=== PATIENT | female | born 2000 | race Caucasian/White ===

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

== ENCOUNTER 2022-01-19 15:16 | Inpatient (IN) | payer MEDICAID ==
[2022-01-19] MEDS ORDERED: Lidocaine 1% 30 ML SDV INJECT PRN (15:36)
[2022-01-19] MEDS ORDERED: Acetaminophen 325 MG Tab PO PRN (15:36)
[2022-01-19] MEDS ORDERED: Sodium Chloride 0.9% 10 ML Syringe FLUSH PRN (15:36)
[2022-01-19] MEDS ORDERED: Nalbuphine 10 MG/1 ML Vial IVPUSH PRN (15:36)
[2022-01-19] MEDS ORDERED: Tranexamic Acid 1,000 MG in Sodium Chloride 0.9% 100 ML IV PRN (15:36)
[2022-01-19] MEDS ORDERED: Misoprostol 400 MCG (4 X 100 MCG TAB) RECTAL PRN (15:36)
[2022-01-19] MEDS ORDERED: Ondansetron 4 MG/2 ML SDV IVPUSH PRN (15:36)
[2022-01-19] MEDS ORDERED: Methylergonovine 0.2 MG/1 ML Amp IM PRN (15:36)
[2022-01-19] MEDS ORDERED: Lactated Ringers 1,000 ML IV ONE (15:36)
[2022-01-19] MEDS ORDERED: Carboprost Tromethamine 250 MCG/1 ML Amp IM PRN (15:36)
[2022-01-19] MEDS ORDERED: Oxytocin/Normal Saline 30 UNIT/500 ML BAG IV SCH (16:00)
[2022-01-19] MEDS: Lactated Ringers 1,000 ML IV SCH (17:30)
[2022-01-19 17:50] LABS: ESTIMATED GFR > 60
[2022-01-19] MEDS: Oxytocin/Normal Saline 30 UNIT/500 ML BAG IV SCH (18:30)
[2022-01-20] MEDS: Misoprostol 25 MCG (1/4 of 100 MCG) Tab VAG PRN ×2 (01:12→05:42)
[2022-01-20] MEDS ORDERED: Misoprostol 50 MCG (1/2 of 100 MCG) Tab VAG PRN (09:54)
[2022-01-20] MEDS: Lactated Ringers 1,000 ML IV SCH ×3 (13:27→21:56)
[2022-01-20] MEDS: Nalbuphine 10 MG/1 ML Vial IM PRN ×2 (15:45→18:44)
[2022-01-20] MEDS ORDERED: fentaNYL 100 MCG/2 ML SDV ITHECAL ONE (21:00)
[2022-01-20] MEDS ORDERED: EPINEPHrine 1 MG/ML SDV ONE ×2 (21:00→21:21)
[2022-01-20] MEDS ORDERED: fentaNYL 100 MCG/2 ML SDV ONE (21:20)
[2022-01-21] MEDS: fentaNYL 100 MCG/2 ML SDV IVPUSH PRN ×2 (00:41→06:05)
[2022-01-21] MEDS: Lactated Ringers 1,000 ML IV SCH ×2 (00:44→01:46)
[2022-01-21] MEDS ORDERED: EPINEPHrine 1 MG/ML SDV ONE ×2 (01:29→01:30)
[2022-01-21] MEDS ORDERED: fentaNYL 100 MCG/2 ML SDV ONE (01:29)
[2022-01-21] MEDS ORDERED: fentaNYL 100 MCG/2 ML SDV ITHECAL ONE (01:30)
[2022-01-21] MEDS ORDERED: Simethicone 80 MG Tab.Chew PO PRN (06:34)
[2022-01-21] MEDS ORDERED: Benzocaine/Menthol 20%-0.5% Spray 78 GM Cannister TOP PRN (06:34)
[2022-01-21] MEDS ORDERED: Oxytocin 10 Units/1 ML SDV IM PRN (06:34)
[2022-01-21] MEDS ORDERED: Acetaminophen 325 MG Tab PO PRN (06:34)
[2022-01-21] MEDS ORDERED: Ketorolac 30 MG/ML SDV IVPUSH PRN (06:36)
[2022-01-21] MEDS ORDERED: hydrOXYzine HCl 25 MG Tab PO PRN (06:36)
[2022-01-21] MEDS: Oxytocin/Normal Saline 30 UNIT/500 ML BAG IV SCH (07:30)
[2022-01-21] MEDS: Prenatal Multivitamin with Calcium/Folic Acid/Iron Tab PO SCH (10:25)
[2022-01-21] MEDS: Docusate Sodium 100 MG Cap PO PRN ×2 (10:25→21:48)
[2022-01-21] MEDS: Ibuprofen 800 MG Tab PO PRN (21:48)
[2022-01-22] MEDS: Docusate Sodium 100 MG Cap PO PRN ×2 (08:29→20:00)
[2022-01-22] MEDS: Ibuprofen 800 MG Tab PO PRN ×2 (08:29→20:00)
[2022-01-22] MEDS: Prenatal Multivitamin with Calcium/Folic Acid/Iron Tab PO SCH (08:29)
[2022-01-23] MEDS: Docusate Sodium 100 MG Cap PO PRN (08:22)
[2022-01-23] MEDS: Ibuprofen 800 MG Tab PO PRN (08:22)
[2022-01-23] MEDS: Prenatal Multivitamin with Calcium/Folic Acid/Iron Tab PO SCH (08:22)
== END 2022-01-23 12:15 | disposition home or self-care (01) | DRG 807 ==
LOC: PREOBSVTOIN 15:56 → UNDOADMIN 16:11 → DL.OB 16:11 → UNDODISIN 01-23 12:15
PROVIDERS: ADMIT Family Medicine; ATTEND Family Medicine
PROC: 10907ZC Drainage of Amniotic Fluid, Therapeutic from Products of Conception, Via Natural or Artificial Opening (ICD-10-PCS; principal; 2022-01-19)
PROC: 3E0P7VZ Introduction of Hormone into Female Reproductive, Via Natural or Artificial Opening (ICD-10-PCS; principal; 2022-01-19)
PROC: 0HQ9XZZ Repair Perineum Skin, External Approach (ICD-10-PCS; principal; 2022-01-19)
PROC: 10E0XZZ Delivery of Products of Conception, External Approach (ICD-10-PCS; principal; 2022-01-19)
PROC: 3E0R3BZ Introduction of Anesthetic Agent into Spinal Canal, Percutaneous Approach (ICD-10-PCS; 2022-01-19)
PROC: 00HU33Z Insertion of Infusion Device into Spinal Canal, Percutaneous Approach (ICD-10-PCS; 2022-01-19)
DX: O13.4 Gestational [pregnancy-induced] hypertension without significant proteinuria, complicating childbirth (principal); Z37.0 Single live birth; Z3A.39 39 weeks gestation of pregnancy; O99.02 Anemia complicating childbirth; D64.9 Anemia, unspecified; Z20.822 Contact with and (suspected) exposure to COVID-19; O70.0 First degree perineal laceration during delivery
CPT/HCPCS: 01967; 36415; 51702; 59409; 81003; 82565; 82570; 83615; 84156; 84450; 84460; 84520; 84550; 85027; A9270-GY; J0171; J1885; J2300; J2405; J2590; J3010; J3490; J7120; U0002

== ENCOUNTER 2022-05-17 16:12 | Emergency (ER) | payer MEDICAID ==
[2022-05-17] MEDS: methylPREDNISolone Sodium Succinate 125 MG/2 ML SDV IM ONE (16:30)
== END 2022-05-17 17:00 | disposition left against medical advice (07) ==
LOC: DL.ED 16:12
DX: T78.40XA Allergy, unspecified, initial encounter (principal)
CPT/HCPCS: 96372; 99283; J2930; 99282